=== PATIENT | male | born 1960 | race Caucasian/White ===

== ENCOUNTER → 2016-05-23 | Outpatient (CLI) | payer OTHER ==
[~2016-05-23] MED LIST: AMOXICILLIN250 M2 PO; REMERON15 MG PO
== END ==
LOC: LAB 12:41
DX: G62.9 Polyneuropathy, unspecified (principal)

== ENCOUNTER → 2016-07-24 | Outpatient (CLI) | payer OTHER ==
[2016-07-24 14:06] VITALS: BP 133/89
== END ==
LOC: AMSURD 13:45
DX: R07.9 Chest pain, unspecified (principal); R55 Syncope and collapse

== ENCOUNTER → 2017-04-19 | Outpatient (CLI) | payer OTHER ==
[2016-07-24 14:06] VITALS: BP 133/89
[2017-04-19 12:40] LABS: URINE APPEARANCE CLEAR; URINE BILIRUBIN NEGATIVE (NEGATIVE); URINE BLOOD NEGATIVE (NEGATIVE); URINE COLOR YELLOW; URINE GLUCOSE NEGATIVE (NEGATIVE); URINE KETONE NEGATIVE (NEGATIVE); URINE LEUKOCYTE ESTERASE TRACE (NEGATIVE); URINE NITRATE NEGATIVE (NEGATIVE); URINE PROTEIN(semi-quant) NEGATIVE (NEGATIVE); URINE UROBILINOGEN NORMAL (NORMAL); URINE WBC 0-1 /hpf (0-3)
== END ==
LOC: LAB 11:38
PROVIDERS: Family Medicine
DX: R35.1 Nocturia (principal); F51.02 Adjustment insomnia

== ENCOUNTER → 2017-06-20 | Outpatient (CLI) | payer OTHER ==
[2016-07-24 14:06] VITALS: BP 133/89
== END ==
LOC: LAB 09:40
DX: J11.1 Influenza due to unidentified influenza virus with other respiratory manifestations (principal); J98.01 Acute bronchospasm

== ENCOUNTER 2017-12-10 11:16 | Emergency (ER) | payer OTHER ==
[~2017-12-10] VITALS: Ht 190.5 cm; Wt 121.6 kg
[2017-12-10] MEDS ORDERED: OSTERA TABLET1 EACH PO (11:24)
[2017-12-10] MEDS ORDERED: CHOLECALCIFEROL1 GM PO (11:36)
[2017-12-10 12:03] LABS: EOS # 0.2 (0.04-0.40); EOS % 2.4 % (0.0-4.0); HEMATOCRIT 36.7 % (42.0-52.0); HEMOGLOBIN 12.3 g/dL (13.5-18.0); LYMPH# 3.1 (1.50-4.00); MEAN CELL VOLUME 87 fl (78-100); MEAN CORPUSCULAR HEMOGLOBIN 29 pg (27-31); MEAN CORPUSCULAR HGB CONC 34 g/dL (33-37); MEAN PLATELET VOLUME 10.4 fl (7.4-10.4); MONO # 0.5 (0.20-0.80); NEU # 3.7 (1.40-6.50); PLATELET COUNT 230 K/mm3 (130-400); RED BLOOD COUNT 4.22 M/mm3 (4.20-5.60); RED CELL DISTRIBUTION WIDTH 12.4 % (11.5-14.5); WHITE BLOOD COUNT 7.5 K/mm3 (4.8-10.8)
[2017-12-10 12:10] LABS: ALBUMIN 3.9 g/dL (3.5-5.0); BUN/CREATININE RATIO 19.8 (6.0-26.0); CALCIUM 8.7 mg/dL (8.4-10.2); TOTAL BILIRUBIN 0.3 mg/dL (0.2-1.3)
[2017-12-10 13:20] LABS: URINE APPEARANCE CLEAR; URINE BILIRUBIN NEGATIVE (NEGATIVE); URINE BLOOD NEGATIVE (NEGATIVE); URINE COLOR YELLOW; URINE GLUCOSE NEGATIVE (NEGATIVE); URINE KETONE NEGATIVE (NEGATIVE); URINE LEUKOCYTE ESTERASE NEGATIVE (NEGATIVE); URINE NITRATE NEGATIVE (NEGATIVE); URINE PROTEIN(semi-quant) NEGATIVE (NEGATIVE); URINE UROBILINOGEN NORMAL (NORMAL); URINE WBC 0-1 /hpf (0-3)
[2017-12-10 14:13] VITALS: BP 136/76
== END 2017-12-10 14:11 | disposition home or self-care (01) ==
LOC: ED 11:16
PROVIDERS: Nurse Practitioner Primary Care
DX: B34.9 Viral infection, unspecified (principal); R51 Headache; Z20.818 Contact with and (suspected) exposure to other bacterial communicable diseases; F17.200 Nicotine dependence, unspecified, uncomplicated
CPT/HCPCS: J1200; J1885; J7030

== ENCOUNTER → 2017-12-13 | Outpatient (CLI) | payer OTHER ==
[2017-12-10 14:13] VITALS: BP 136/76
[~2017-12-13] MED LIST changes: +CHOLECALCIFEROL1 GM PO; +OSTERA TABLET1 EACH PO
== END ==
LOC: LAB 11:22 → RAD 11:22
PROVIDERS: Family Medicine
DX: M77.32 Calcaneal spur, left foot (principal); R53.1 Weakness; E55.9 Vitamin D deficiency, unspecified; F51.02 Adjustment insomnia; R25.1 Tremor, unspecified

== ENCOUNTER → 2018-05-14 | Outpatient (CLI) | payer OTHER | LOC: RAD 11:15 | DX: M17.0 Bilateral primary osteoarthritis of knee (principal) ==

== ENCOUNTER → 2018-11-07 | Outpatient (CLI) | payer OTHER ==
[~2018-11-07] VITALS: Ht 190.5 cm; Wt 109.5 kg
[~2018-11-07] MED LIST changes: +QMIIZ ODT15 MG PO; +SERTRALINE50 MG PO
[2018-11-07 11:45] LABS: ALBUMIN 4.1 g/dL (3.5-5.0); POTASSIUM 4.9 mmol/L (3.5-5.1)
[2018-11-07 11:46] LABS: CALCIUM 10.8 mg/dL (8.3-10.5)
[2018-11-07 11:48] LABS: TOTAL PROTEIN 7.9 g/dL (6.4-8.3)
[2018-11-07 11:49] LABS: TOTAL BILIRUBIN 0.5 mg/dL (0.2-1.2)
[2018-11-07 12:19] VITALS: BP 137/81
[2018-11-07 22:35] LABS: HEPATITIS C VIRUS ANTIBODY Negative (Negative)
== END ==
LOC: LAB 11:18
PROVIDERS: Family Medicine
DX: Z00.00 Encounter for general adult medical examination without abnormal findings (principal); Z11.3 Encounter for screening for infections with a predominantly sexual mode of transmission; Z12.5 Encounter for screening for malignant neoplasm of prostate; Z13.6 Encounter for screening for cardiovascular disorders; Z13.820 Encounter for screening for osteoporosis; E55.9 Vitamin D deficiency, unspecified; M54.5 Low back pain; M25.561 Pain in right knee; M25.531 Pain in right wrist; Z72.0 Tobacco use

== ENCOUNTER → 2018-11-21 | Outpatient (CLI) | payer OTHER ==
[2018-11-07 12:19] VITALS: BP 137/81
== END ==
LOC: CARDLAB 07:47 → CARDREHAB 08:17 → RAD 08:17
DX: Z00.00 Encounter for general adult medical examination without abnormal findings (principal); Z12.5 Encounter for screening for malignant neoplasm of prostate; Z13.6 Encounter for screening for cardiovascular disorders; Z13.820 Encounter for screening for osteoporosis; M47.892 Other spondylosis, cervical region; M19.022 Primary osteoarthritis, left elbow; M24.022 Loose body in left elbow; M54.2 Cervicalgia; M25.532 Pain in left wrist; M25.531 Pain in right wrist; M25.561 Pain in right knee; E55.9 Vitamin D deficiency, unspecified; R06.09 Other forms of dyspnea
CPT/HCPCS: A9500

== ENCOUNTER → 2018-12-05 | Outpatient (CLI) | payer OTHER ==
[2018-11-07 12:19] VITALS: BP 137/81
[2018-12-05 11:23] LABS: URINE COLOR YELLOW
[2018-12-05 11:24] LABS: URINE APPEARANCE CLEAR; URINE BILIRUBIN NEGATIVE (NEGATIVE); URINE BLOOD NEGATIVE (NEGATIVE); URINE GLUCOSE NEGATIVE (NEGATIVE); URINE KETONE NEGATIVE (NEGATIVE); URINE LEUKOCYTE ESTERASE NEGATIVE (NEGATIVE); URINE MUCUS PRESENT (NOT PRESENT); URINE NITRATE NEGATIVE (NEGATIVE); URINE PROTEIN(semi-quant) NEGATIVE (NEGATIVE); URINE UROBILINOGEN NORMAL (NORMAL); URINE WBC 0-1 /hpf (0-3)
== END ==
LOC: LAB 11:07
PROVIDERS: Family Medicine
DX: F32.9 Major depressive disorder, single episode, unspecified (principal); E78.1 Pure hyperglyceridemia; R39.89 Other symptoms and signs involving the genitourinary system

== ENCOUNTER → 2018-12-18 | Outpatient (CLI) | payer OTHER ==
[2018-11-07 12:19] VITALS: BP 137/81
== END ==
LOC: CARDREHAB 14:40
DX: F32.9 Major depressive disorder, single episode, unspecified (principal); F51.02 Adjustment insomnia; R35.1 Nocturia

== ENCOUNTER → 2019-05-11 | Outpatient (CLI) | payer OTHER ==
[2018-11-07 12:19] VITALS: BP 137/81
== END ==
LOC: RAD 15:21
DX: R07.89 Other chest pain (principal)

== ENCOUNTER → 2020-04-21 | Outpatient (CLI) | payer OTHER ==
[2018-11-07 12:19] VITALS: BP 137/81
== END ==
LOC: RAD 09:33
DX: M47.814 Spondylosis without myelopathy or radiculopathy, thoracic region (principal); L29.9 Pruritus, unspecified

== ENCOUNTER → 2020-08-20 | Outpatient (CLI) | payer OTHER ==
[2018-11-07 12:19] VITALS: BP 137/81
== END ==
LOC: RAD 09:41
DX: M79.605 Pain in left leg (principal); W19.XXXA Unspecified fall, initial encounter

== ENCOUNTER 2020-10-20 13:40 | Outpatient (RCR) | payer OTHER | END 2021-01-18 | disposition home or self-care (01) | LOC: PT | DX: S86.012D Strain of left Achilles tendon, subsequent encounter (principal) ==

== ENCOUNTER 2021-01-25 14:12 | Outpatient (RCR) | payer OTHER | END 2021-04-19 | disposition home or self-care (01) | LOC: PT | DX: S86.012D Strain of left Achilles tendon, subsequent encounter (principal) ==

== ENCOUNTER → 2021-07-31 | Day surgery (SDC) | payer OTHER | END | disposition home or self-care (01) | LOC: MSO 08:38 | DX: Z12.11 Encounter for screening for malignant neoplasm of colon (principal); Z86.010 Personal history of colon polyps; K57.30 Diverticulosis of large intestine without perforation or abscess without bleeding | CPT/HCPCS: 00812; J2704; J3010; J7120 ==

== ENCOUNTER 2023-05-10 09:52 | Outpatient (RCR) | payer MEDICARE ==
[2023-05-30] MEDS ORDERED: ROSUVASTATIN CA20 MG PO (19:25)
[2023-05-30] MEDS ORDERED: BACTRIM DS TAB1 EACH PO (20:28)
== END 2023-05-29 | disposition home or self-care (01) ==
LOC: PT
DX: M25.672 Stiffness of left ankle, not elsewhere classified (principal)

== ENCOUNTER → 2023-05-29 | Outpatient (CLI) | payer MEDICARE ==
[~2023-05-29] MED LIST changes: +BACTRIM DS TAB1 EACH PO; +ROSUVASTATIN CA20 MG PO
== END ==
LOC: RAD 12:17
DX: M76.62 Achilles tendinitis, left leg (principal)

== ENCOUNTER 2023-05-30 08:00 | Outpatient (RCR) | payer MEDICARE ==
[~2023-05-30 08:00] MED LIST changes: -BACTRIM DS TAB1 EACH PO; -ROSUVASTATIN CA20 MG PO
[2023-05-30] MEDS ORDERED: ROSUVASTATIN CA20 MG PO (19:25)
[2023-05-30] MEDS ORDERED: BACTRIM DS TAB1 EACH PO (20:28)
== END 2023-06-27 | disposition home or self-care (01) ==
LOC: PT
DX: M25.672 Stiffness of left ankle, not elsewhere classified (principal); Z98.890 Other specified postprocedural states

== ENCOUNTER 2023-05-30 19:00 | Emergency (ER) | payer MEDICARE, OTHER ==
[~2023-05-30] VITALS: Wt 109.5 kg
[2023-05-30] MEDS ORDERED: ROSUVASTATIN CA20 MG PO (19:25)
[2023-05-30] MEDS ORDERED: BACTRIM DS TAB1 EACH PO (20:28)
[2023-05-30 20:40] VITALS: BP 128/82
== END 2023-05-30 20:40 | disposition home or self-care (01) ==
LOC: ED 19:00
DX: L03.113 Cellulitis of right upper limb (principal); Z23 Encounter for immunization
CPT/HCPCS: J0696

== ENCOUNTER 2023-09-01 16:22 | Emergency (ER) | payer OTHER, MEDICARE ==
[~2023-09-01] VITALS: Ht 193 cm; Wt 115.9 kg
[~2023-09-01 16:22] MED LIST changes: +BACTRIM DS TAB1 EACH PO; +ROSUVASTATIN CA20 MG PO
[2023-09-01] MEDS ORDERED: ASPIRIN E.C. 8181 MG PO (16:32)
[2023-09-01] MEDS ORDERED: fentaNYL 100 MCG/2 ML VIAL IV ONE (17:00)
[2023-09-01 17:17] LABS: BASO # 0.03 K/mm3 (0.02-0.10); EOS # 0.12 K/mm3 (0.04-0.40); EOS % 1.4 % (0.0-4.0); HEMATOCRIT 43.8 % (42.0-52.0); HEMOGLOBIN 14.6 g/dL (13.5-18.0); LYMPH# 3.86 K/mm3 (1.50-4.00); MEAN CELL VOLUME 88 fl (78-100); MEAN CORPUSCULAR HEMOGLOBIN 29 pg (27-31); MEAN CORPUSCULAR HGB CONC 33 g/dL (33-37); MEAN PLATELET VOLUME 10.2 fl (7.4-10.4); MONO # 0.59 K/mm3 (0.20-0.80); NEU # 4.12 K/mm3 (1.40-6.50); PLATELET COUNT 269 K/mm3 (130-400); RED BLOOD COUNT 4.99 M/mm3 (4.20-5.60); RED CELL DISTRIBUTION WIDTH 11.5 % (11.5-14.5); WHITE BLOOD COUNT 8.7 K/mm3 (4.8-10.8)
[2023-09-01 17:22] LABS: ALBUMIN 4.6 g/dL (3.4-4.8)
[2023-09-01 17:24] LABS: CALCIUM 10.6 mg/dL (8.3-10.5)
[2023-09-01 17:25] LABS: TOTAL PROTEIN 8.2 g/dL (6.2-8.1)
[2023-09-01 17:27] LABS: TOTAL BILIRUBIN 0.3 mg/dL (0.2-1.2)
[2023-09-01 19:09] VITALS: BP 142/95
== END 2023-09-01 19:09 | disposition home or self-care (01) ==
LOC: ED 16:22
PROVIDERS: Physician Assistant
DX: M54.2 Cervicalgia (principal); M54.50 Low back pain, unspecified; M54.6 Pain in thoracic spine; R51.9 Headache, unspecified; V89.2XXA Person injured in unspecified motor-vehicle accident, traffic, initial encounter; Y92.410 Unspecified street and highway as the place of occurrence of the external cause
CPT/HCPCS: J3010

== ENCOUNTER 2023-10-02 08:00 | Outpatient (RCR) | payer OTHER ==
[~2023-10-02 08:00] MED LIST changes: +ASPIRIN E.C. 8181 MG PO
== END 2023-10-27 | disposition home or self-care (01) ==
LOC: PT
DX: M54.2 Cervicalgia (principal)
CPT/HCPCS: G0283-GP

== ENCOUNTER → 2023-11-12 | Outpatient (CLI) | payer MEDICARE | LOC: RAD 10:01 | DX: M50.322 Other cervical disc degeneration at C5-C6 level (principal); M54.50 Low back pain, unspecified ==

== ENCOUNTER 2024-03-12 17:30 | Inpatient (IN) | payer MEDICARE, OTHER ==
[~2024-03-12] VITALS: Ht 190.5 cm; Wt 122.7 kg
--- NOTE | 2024-03-12 18:00 | NUR ---
PT ADMITED FROM ER FOLLOWING FALL FROM LADDER DUE TO RUNG BREAKING. PT IMPACTED TO POSTERIOR LEFT RIB CAGE. PT ALERT AND ORIENTED. SKIN WARM AND DRY. PT ABLE TO AMBULATE WITH STAND BY ASSIST TO ROOM 203. PT ADMITTED FOR MULTIPLE RIB FRACTURES, TRAUMATIC FALL AND PAIN CONTROL. [place] PT ORIENTED TO ROOM. ASKED TO NOTIFY STAFF BEFORE GETTING UP FOR ASSISTANCE. PT PLEASANT AND COOPERATIVE.
[2024-03-12 18:05] VITALS: BP 131/82
[2024-03-12] MEDS ORDERED: Morphine 4 MG/ML VIAL IV PRN (20:00)
[2024-03-12] MEDS ORDERED: Bisacodyl 5 MG TAB PO PRN (20:00)
[2024-03-12 20:18] VITALS: BP 149/83
[2024-03-12] MEDS ORDERED: HYDROcodone/Acetaminophen 10-325 MG TAB PO SCH (21:00)
[2024-03-12] MEDS ORDERED: Ketorolac 30 MG/ML VIAL IV SCH (21:00)
[2024-03-12 23:00] VITALS: BP 121/72
[2024-03-13] MEDS ORDERED: Calcium Carbonate Chewable 500 MG TAB PO PRN (01:45)
[2024-03-13 03:57] VITALS: BP 119/76
[2024-03-13 05:41] LABS: BASO # 0.03 K/mm3 (0.02-0.10); EOS # 0.24 K/mm3 (0.04-0.40); EOS % 2.9 % (0.0-4.0); HEMATOCRIT 32.3 % (42.0-52.0); HEMOGLOBIN 10.7 g/dL (13.5-18.0); LYMPH# 3.36 K/mm3 (1.50-4.00); MEAN CELL VOLUME 92 fl (78-100); MEAN CORPUSCULAR HEMOGLOBIN 30 pg (27-31); MEAN CORPUSCULAR HGB CONC 33 g/dL (33-37); MONO # 0.89 K/mm3 (0.20-0.80); NEU # 3.69 K/mm3 (1.40-6.50); PLATELET COUNT 206 K/mm3 (130-400); RED BLOOD COUNT 3.52 M/mm3 (4.20-5.60); RED CELL DISTRIBUTION WIDTH 12.7 % (11.5-14.5); WHITE BLOOD COUNT 8.2 K/mm3 (4.8-10.8)
[2024-03-13 05:48] LABS: ALBUMIN 3.2 g/dL (3.4-4.8)
[2024-03-13 05:50] LABS: CALCIUM 8.5 mg/dL (8.3-10.5)
[2024-03-13 05:51] LABS: TOTAL PROTEIN 5.5 g/dL (6.2-8.1)
[2024-03-13 05:53] LABS: TOTAL BILIRUBIN 0.2 mg/dL (0.2-1.2)
[2024-03-13 07:00] VITALS: BP 122/77
[2024-03-13] MEDS ORDERED: Polyethylene Glycol 3350 Powder 17 GM PACKET PO SCH (09:00)
[2024-03-13] MEDS ORDERED: Lidocaine 4% Topical Patch TP SCH (09:00)
--- NOTE | 2024-03-13 09:40 | NUR ---
PT ALERT AND ORIENTED. UP WITH STANDBY ASSISTANCE. RATES PAIN 2/10 WHEN SITTING. LIDOCAINE PATCHES PLACED AND NORCO GIVEN. RESTING IN BED WITH BED ALARMS ON, CALL LIGHT IN REACH.
[2024-03-13 11:14] VITALS: BP 124/72
[2024-03-13] MEDS ORDERED: Iohexol 350 - 100 ML VIAL IV ONE (14:46)
[2024-03-13 16:04] VITALS: BP 132/74; BP 132/84; BP 152/88
--- NOTE | 2024-03-13 16:38 | NUR ---
AROUND 1350 PATIENT PRESSED CALL LIGHT TO STATE HE IS HAVING AN INCREASE IN HEAD AND NECK PAIN AND IS FEELING DIZZY. PT SITTING UP IN RECLINER AND WAS ASSISTED TO BED TO LIE DOWN. VITAL SIGNS AND EKG OBTAINED. GRAY ALVARADO NOTIFIED AND CAME TO BEDSIDE. HEAD CT ORDERED AND OBTAINED WHICH DID NOT HAVE ANY ACUTE FINDINGS. PT ALERT AND ORIENTED. RIGHT PUPIL REMAINS DILATED, BUT THIS IS PATIENTS BASELINE. REMAINS IN BED WITH BED ALARMS ON AND CALL LIGHT IN REACH.
--- NOTE | 2024-03-13 18:46 | NUR ---
REPORT GIVEN TO RAN ESPAÑA
--- NOTE | 2024-03-13 18:57 | NUR ---
RECEIVED REPORT FROM RAN MARTINEZ
[2024-03-13 19:00] VITALS: BP 134/77
[2024-03-13] MEDS ORDERED: tiZANidine 4 MG TABLET PO SCH (21:00)
[2024-03-13 23:03] VITALS: BP 121/77
--- NOTE | 2024-03-14 00:55 | NUR ---
PATIENT WAKES EASILY TO TAKE MEDS. REPORTS PAIN 2/10 LONG HE ISN'T MOVING AROUND. WILL USE IS WHILE AWAKE, UNDERSTANDS IMPORTANCE. UP TO TOILET WITH STAFF ASSIST. GAIT STEADY. BED ALARM ON , CALL LIGHT IN REACH
[2024-03-14 03:00] VITALS: BP 128/83
--- NOTE | 2024-03-14 05:24 | NUR ---
PATIENT UP WITH ONE SBA TO TOILET. GAIT STEADY. RATES PAIN AT THIS TIME 8/10, SCHEDULED PAIN MEDS GIVEN. PATIENT REQUESTING SHOWER AFTER BREAKFAST. BED ALARM ON AND CALL LIGHT IN REACH
[2024-03-14 06:56] LABS: BASO # 0.03 K/mm3 (0.02-0.10); EOS # 0.23 K/mm3 (0.04-0.40); EOS % 3.3 % (0.0-4.0); HEMATOCRIT 32.5 % (42.0-52.0); HEMOGLOBIN 10.6 g/dL (13.5-18.0); LYMPH# 3.29 K/mm3 (1.50-4.00); MEAN CELL VOLUME 91 fl (78-100); MEAN CORPUSCULAR HEMOGLOBIN 30 pg (27-31); MEAN CORPUSCULAR HGB CONC 33 g/dL (33-37); MONO # 0.65 K/mm3 (0.20-0.80); NEU # 2.86 K/mm3 (1.40-6.50); PLATELET COUNT 201 K/mm3 (130-400); RED BLOOD COUNT 3.56 M/mm3 (4.20-5.60); RED CELL DISTRIBUTION WIDTH 12.4 % (11.5-14.5); WHITE BLOOD COUNT 7.1 K/mm3 (4.8-10.8)
[2024-03-14 07:00] LABS: ALBUMIN 3.2 g/dL (3.4-4.8)
[2024-03-14 07:03] LABS: TOTAL PROTEIN 5.6 g/dL (6.2-8.1)
[2024-03-14 07:04] LABS: TOTAL BILIRUBIN 0.3 mg/dL (0.2-1.2)
[2024-03-14 07:45] VITALS: BP 133/74
[2024-03-14 11:18] VITALS: BP 146/84
[2024-03-14 15:18] VITALS: BP 156/89
--- NOTE | 2024-03-14 18:50 | NUR ---
REPORT RECIVED FROM BREN TONG
[2024-03-14 19:00] VITALS: BP 151/83
--- NOTE | 2024-03-14 20:50 | NUR ---
Pt resting in bed watching TV. Pt reports 7/10 pain mostly along the spine and neck. Scheduled pain meds given and topical ointment applied to area where pt reports pain. Pt is able to maove all extrimities without difficulties. Pt ambulates with stand by assist. Pt denies any needs when asked. Call light in reach if needs arise. Pt does go fopr a walk with staff and offeres no further complints of pain when asked.
[2024-03-14 23:00] VITALS: BP 123/76
[2024-03-15 03:03] VITALS: BP 106/68
--- NOTE | 2024-03-15 06:40 | NUR ---
SPOKE WITH DR PEREZ ABOUT PT REQUESTING MILK SO IT WILL CAUSE HIM TO HAVE A BM DUE TO HIM BEING LACTOUS INTOLERANT. RECIVED THE DR ACEVESAY TO GIVEN HIM MILK IF IT WOULD HELP WITH HIS CONSTIPATION.
--- NOTE | 2024-03-15 06:42 | NUR ---
THERE IS NO MILK AVILABLE TO STAFF AT THIS TIME. EXPLAINED TO THE PT THAT THE MILK WILL BE DELIVERED ON HIS BREAKFAST, PT STATES UNDERSTANDING
[2024-03-15 07:00] VITALS: BP 132/84
--- NOTE | 2024-03-15 07:01 | NUR ---
REPORT GIVEN TO WAVE RN
[2024-03-15 10:14] VITALS: BP 132/84; BP_SYST 134
--- NOTE | 2024-03-15 10:19 | NUR ---
0700 THIS NURSE ASSESSED PT PT REPORTS HAVING A HEADACHE, HE REPORTS IT STARTED APPROX 0500. PT IS LYING IN HIS DARKENED ROOM WITH SUNGLASSESS ON AND MOVING SLOWLY TO CHANGE POSITIONS. THIS NURSE ADMINISTERED MORHPINE, WHEN CHECKED ON, PT WAS RESTING WITH EYES CLOSED, RN NOTES EVEN CHEST RISE AND FALL. 0900 PT REPORTS HAVING MUCH LESS HEAD PAIN. PT IS SITTING UP RIGHT IN HIS RECLINER. THIS RN ADMINISTERED SCHEDULED NORCO AND OTHER 0900 MEDS. PT ATE HIS BREAKFAST. 1000 RN CHECK ON PT, PT IS RESTING ON HIS RIGHT SIDE EYES CLOSED, AWAKENED EASILY.
[2024-03-15 15:14] VITALS: BP 119/80
--- NOTE | 2024-03-15 18:54 | NUR ---
GAVE REPORT TO WILLIAN Dove RN.
[2024-03-15 19:33] VITALS: BP 143/81
--- NOTE | 2024-03-15 22:02 | NUR ---
pt alert and oriented x4, pt resting in bed. pt reports 8/10 pain when moving. pt assessed and medications delivered without complications. pt iv due for change, IV flushes well and is free of redness/draining, pt is a hard stick. IV site will remain at left AC. pt assisted to restroom by this nurse, pt now resting in bed with call light in reach and bed alarm on
[2024-03-15 23:11] VITALS: BP 101/63
--- NOTE | 2024-03-16 03:00 | NUR ---
provider genia approval given for vitals while awake so pt may get a good nights rest
[2024-03-16 06:25] VITALS: BP 108/69
--- NOTE | 2024-03-16 06:59 | NUR ---
report to herman ledesma
[2024-03-16 08:01] VITALS: BP 101/66
[2024-03-16] MEDS ORDERED: tiZANidine 4 MG TABLET PO PRN (08:27)
[2024-03-16] MEDS ORDERED: TIZANIDINE HYDRO4 MG PO (08:30)
[2024-03-16] MEDS ORDERED: DICLOFENAC SODI50 GM TP (08:31)
[2024-03-16] MEDS ORDERED: ACETAMINOPHEN-H1 TA1 PO (08:35)
[2024-03-16] MEDS ORDERED: POLYETHYLE17 GM/Dose PO (08:36)
[2024-03-16] MEDS ORDERED: LIDOCAINE PAIN1 EACH TP (08:37)
[2024-03-16] MEDS ORDERED: NAPROXEN500 MG PO (08:54)
[2024-03-16] MEDS ORDERED: Polyethylene Glycol 3350 Powder 17 GM PACKET PO SCH (09:00)
[2024-03-16] MEDS ORDERED: ROSUVASTATIN CA20 MG PO (09:55)
[2024-03-16] MEDS ORDERED: Naproxen 250 MG TAB PO PRN (11:00)
--- NOTE | 2024-03-16 11:38 | NUR ---
ORDERS RECIEVED FOR PATIENT TO BE DISCHARGED. DISCHARGE INSTRUCTIONS REVIEWED WITH PATIENT. HE VOICED UNDERSTANDING AND DENIES ANY QUESTIONS. PATIENT DROVE HIMSELF TO ER. HE WOULD HAVE BEEN ABLE TO DRIVE HOME BY HIMSELF, HOWEVER HE DECIDED TO TAKE HIS SCHEDULED NARCOTIC, SO HIS FRIEND WILL PICK HIM UP. HE DID HAVE A MED SIZED BM THIS AM. HE WAS INSTRUCTED TO REMOVE HIS LIDOCAINE PATCHES THIS EVENING BEFORE BED. IV WAS REMOVED AND INTACT. RX FOR NAPROXIN SENT WITH PATIENT. ALL OTHER MEDS E-PERSCRIBED. COPY OF RADIOLOGY REPORT COPIED ONTO CD AND GIVEN TO PATIENT. PATIENT IS CURRENTLY AWAITING HIS FRIEND TO PICK HIM UP. HE IS SITTING IN HIS ROOM. HE HAS BEEN ABLE TO AMBULATE WITH STEADY GAIT. HE COMPLAINED MORE ABOUT PAIN IN HIS BACK THAN HIS LEFT RIB AREA. HE BELIEVES IT'S DUE TO HIS ADJUSTING HIS POSITION DUE TO PAIN.
[2024-03-16] MEDS ORDERED: HYDROcodone/Acetaminophen 10-325 MG TAB PO SCH (12:00)
== END 2024-03-16 11:50 | disposition home or self-care (01) | DRG 185 ==
LOC: MED/SURG 17:30
PROVIDERS: Family Medicine; ADMIT Nurse Practitioner
DX: S22.42XA Multiple fractures of ribs, left side, initial encounter for closed fracture (principal); I10 Essential (primary) hypertension; E78.2 Mixed hyperlipidemia; R52 Pain, unspecified; W11.XXXA Fall on and from ladder, initial encounter; Y92.007 Garden or yard of unspecified non-institutional (private) residence as the place of occurrence of the external cause; Z79.82 Long term (current) use of aspirin; Z88.8 Allergy status to other drugs, medicaments and biological substances
CPT/HCPCS: J1650; J1885; J2270; Q9967

== ENCOUNTER → 2024-05-25 | Outpatient (CLI) | payer MEDICARE, OTHER ==
[~2024-05-25] MED LIST changes: +ACETAMINOPHEN-H1 TA1 PO; +DICLOFENAC SODI50 GM TP; +LIDOCAINE PAIN1 EACH TP; +NAPROXEN500 MG PO; +POLYETHYLE17 GM/Dose PO; +TIZANIDINE HYDRO4 MG PO
== END ==
LOC: LAB 09:50
DX: Z13.1 Encounter for screening for diabetes mellitus (principal); M47.816 Spondylosis without myelopathy or radiculopathy, lumbar region